=== PATIENT | female | born 1945 | race Caucasian/White ===

== ENCOUNTER → 2016-11-03 | Outpatient (REF) | payer MEDICARE, OTHER ==
[~2016-11-03] MED LIST: /OCUVTA PO; /ONDA4TA PO; ACET65TA OR; ACETAMINOPHEN PO; ACIPHEX OR; ACIPHEX PO; AMOX875T19 PO; CALTRATE PO; CIPR500T89 PO; FISHCAP PO; FLAG500T PO; FLEEENE4 PR; Fish Oil PO; GLUCOPHAGE PO; GLUCTAB2 OR; LIPI20TA OR; LIPITOR PO; LISI10TA4 OR; LISIPOW PO; Lipitor PO; MULTCAP PO; PAXI20TA OR; PAXI20TA3 PO; PAXIL PO; PROBCAP13 PO; REGL10TA6 PO; VITA500046 PO; ZYRT10TA2 PO; Zoloft; Zoloft PO
[2016-11-03 13:23] LABS: MEAN CORPUSCULAR HEMOGLOBIN 27.6 pg (27.0-33.0); MEAN CORPUSCULAR HGB CONC 31.7 g/dl (32.0-36.5); MEAN CORPUSCULAR VOLUME 87.1 fl (80.0-96.0); RED CELL DISTRIBUTION WIDTH 14.1 % (11.5-14.5); WHITE BLOOD COUNT 4.1 K/mm3 (4.0-10.0)
[2016-11-03 13:31] LABS: ALBUMIN 3.8 GM/DL (3.2-5.2); ALBUMIN/GLOBULIN RATIO 1.23 (1.00-1.93); BILIRUBIN,TOTAL 0.5 MG/DL (0.2-1.0); CALCIUM LEVEL 9.1 MG/DL (8.8-10.2); CREATININE FOR GFR 1.23 MG/DL (0.55-1.02); POTASSIUM SERUM 4.3 MEQ/L (3.5-5.1); TOTAL PROTEIN 6.9 GM/DL (6.4-8.2)
[2016-11-03 13:54] LABS: MICROSCOPIC INDICATED? MAN YES (NO)
[2016-11-03 13:55] LABS: BACTERIA, URINE SMALL AMOUNT; HYALINE CAST, URINE NONE SEEN /lpf (0-1); MICROSCOPIC EXAM PERFORMED; RBC, URINE NONE SEEN /hpf (0-3); SQUAMOUS EPITHELIAL CELL URINE SMALL AMOUNT /hpf (SMALL AMT)
== END | disposition home or self-care (01) ==
LOC: M SFHCPLAZ 10:51
PROVIDERS: ATTEND Internal Medicine
DX: D64.9 Anemia, unspecified (principal); E11.29 Type 2 diabetes mellitus with other diabetic kidney complication; E78.5 Hyperlipidemia, unspecified

== ENCOUNTER → 2016-11-05 | Outpatient (REF) | payer MEDICARE, OTHER ==
[2016-11-05 13:49] LABS: FOLATE 7.2 NG/ML
== END ==
LOC: M SFHCPLAZ 11:12
PROVIDERS: ATTEND Internal Medicine
DX: R53.82 Chronic fatigue, unspecified (principal)
CPT/HCPCS: 36415; 82607; 82746; 84439; 84443; G0463

== ENCOUNTER → 2017-05-03 | Outpatient (CLI) | payer MEDICARE, OTHER ==
[~2017-05-03] MED LIST changes: +ATOR1TAB21; +CLIN1PAD2; +LISI10TA4; +OMEP20CA3; +PARO20TA3
[2017-05-03 14:40] LABS: MEAN CORPUSCULAR HEMOGLOBIN 30.2 pg (27.0-33.0); MEAN CORPUSCULAR HGB CONC 33.7 g/dl (32.0-36.5); MEAN CORPUSCULAR VOLUME 89.7 fl (80.0-96.0); RED CELL DISTRIBUTION WIDTH 14.4 % (11.5-14.5); WHITE BLOOD COUNT 5.2 K/mm3 (4.0-10.0)
[2017-05-03 14:52] LABS: ALBUMIN 4.1 GM/DL (3.2-5.2); ALBUMIN/GLOBULIN RATIO 1.17 (1.00-1.93); BILIRUBIN,TOTAL 0.6 MG/DL (0.2-1.0); CALCIUM LEVEL 9.4 MG/DL (8.8-10.2); CREATININE FOR GFR 1.21 MG/DL (0.55-1.02); GLOMERULAR FILTRATION RATE 46.8 (>39); POTASSIUM SERUM 4.4 MEQ/L (3.5-5.1); TOTAL PROTEIN 7.6 GM/DL (6.4-8.2)
== END ==
LOC: M WUC 11:16
PROVIDERS: ATTEND Internal Medicine
DX: D64.9 Anemia, unspecified (principal); E11.29 Type 2 diabetes mellitus with other diabetic kidney complication; K21.9 Gastro-esophageal reflux disease without esophagitis

== ENCOUNTER 2017-05-17 15:37 | Emergency (ER) | payer MEDICARE, BC, OTHER ==
[~2017-05-17] VITALS: Ht 167.6 cm; Wt 84.1 kg
[~2017-05-17 15:37] MED LIST changes: -ATOR1TAB21; -CLIN1PAD2; -LISI10TA4; -OMEP20CA3; -PARO20TA3
[2017-05-17] MEDS ORDERED: ATOR1TAB21 (15:57)
[2017-05-17] MEDS ORDERED: OMEP20CA3 (15:57)
[2017-05-17] MEDS ORDERED: PARO20TA3 (15:57)
[2017-05-17] MEDS ORDERED: LISI10TA4 (15:57)
[2017-05-17] MEDS ORDERED: CLIN1PAD2 (15:57)
[2017-05-17] MEDS ORDERED: RABIES IMMUNE GLOBULIN 300 INTERNATIONAL UNITS/2 ML VIAL (90375) IM ONE (16:45)
[2017-05-17] MEDS ORDERED: RABIES VACCINE HUMAN 2.5 INTERNATIONAL UNITS/ML VIAL (90675) IM ONE (16:45)
[2017-05-17] MEDS ORDERED: RABIES IMMUNE GLOBULIN 1500 INTERNATIONAL UNITS/10 ML VIAL (90375) IM ONE ×2 (16:45)
[2017-05-17 18:08] VITALS: BP 144/82
== END 2017-05-17 18:09 | disposition home or self-care (01) ==
LOC: M ED 15:37
DX: Z20.3 Contact with and (suspected) exposure to rabies (principal); E11.9 Type 2 diabetes mellitus without complications; I10 Essential (primary) hypertension; Z87.891 Personal history of nicotine dependence

== ENCOUNTER 2017-05-24 11:29 | Emergency (ER) | payer MEDICARE, BC, OTHER ==
[~2017-05-24] VITALS: Ht 165.1 cm; Wt 84.9 kg
[~2017-05-24 11:29] MED LIST changes: +ATOR1TAB21; +CLIN1PAD2; +LISI10TA4; +OMEP20CA3; +PARO20TA3
[2017-05-24] MEDS ORDERED: RABIES VACCINE HUMAN 2.5 INTERNATIONAL UNITS/ML VIAL (90675) IM ONE (13:30)
[2017-05-24 14:11] VITALS: BP 151/98
== END 2017-05-24 14:13 | disposition home or self-care (01) ==
LOC: M ED 11:29
DX: Z20.3 Contact with and (suspected) exposure to rabies (principal)

== ENCOUNTER 2017-05-31 14:41 | Emergency (ER) | payer MEDICARE, BC, OTHER ==
[~2017-05-31] VITALS: Ht 167.6 cm; Wt 84.1 kg
[2017-05-31] MEDS ORDERED: RABIES VACCINE HUMAN 2.5 INTERNATIONAL UNITS/ML VIAL (90675) IM ONE (17:00)
[2017-05-31 17:16] VITALS: BP 165/82
== END 2017-05-31 17:17 | disposition home or self-care (01) ==
LOC: M ED 14:41
DX: Z23 Encounter for immunization (principal); Z20.3 Contact with and (suspected) exposure to rabies; I10 Essential (primary) hypertension; Z79.899 Other long term (current) drug therapy; Z88.5 Allergy status to narcotic agent; Z88.8 Allergy status to other drugs, medicaments and biological substances; Z91.013 Allergy to seafood

== ENCOUNTER → 2017-06-09 | Outpatient (REF) | payer MEDICARE, OTHER | LOC: M SFHCPLAZ 13:16 | PROVIDERS: ATTEND Internal Medicine | DX: Z20.3 Contact with and (suspected) exposure to rabies (principal) ==

== ENCOUNTER → 2018-01-05 | Outpatient (CLI) | payer MEDICARE, BC, OTHER | LOC: M RAD 07:03 | DX: K82.8 Other specified diseases of gallbladder (principal) | CPT/HCPCS: 76705 ==

== ENCOUNTER → 2018-04-14 | Outpatient (REF) | payer MEDICARE, OTHER ==
[2018-04-14 12:41] LABS: HEMATOCRIT 36.5 % (36.0-47.0); HEMOGLOBIN 11.7 g/dl (12.0-15.5); MEAN CORPUSCULAR HEMOGLOBIN 28.5 pg (27.0-33.0); MEAN CORPUSCULAR HGB CONC 32.1 g/dl (32.0-36.5); MEAN CORPUSCULAR VOLUME 88.8 fl (80.0-96.0); PLATELET COUNT, AUTOMATED 195 10^3/uL (150-450); RED BLOOD COUNT 4.11 10^6/uL (4.00-5.40); RED CELL DISTRIBUTION WIDTH 15.1 % (11.5-14.5); WHITE BLOOD COUNT 5.5 10^3/uL (4.0-10.0)
[2018-04-14 12:54] LABS: ALBUMIN 3.7 GM/DL (3.2-5.2); ALBUMIN/GLOBULIN RATIO 1.16 (1.00-1.93); ALKALINE PHOSPHATASE 60 U/L (45-117); ALT/SGPT 22 U/L (12-78); ANION GAP 9 MEQ/L (8-16); AST/SGOT 14 U/L (7-37); BILIRUBIN,TOTAL 0.5 MG/DL (0.2-1.0); BLOOD UREA NITROGEN 20 MG/DL (7-18); CALCIUM LEVEL 8.8 MG/DL (8.8-10.2); CARBON DIOXIDE LEVEL 27 MEQ/L (21-32); CHLORIDE LEVEL 109 MEQ/L (98-107); CHOLESTEROL LEVEL 176 MG/DL (<200); CHOLESTEROL RISK RATIO 2.285 (<5); CREATININE FOR GFR 1.18 MG/DL (0.55-1.30); GLOMERULAR FILTRATION RATE 48.1 (>39); GLUCOSE, FASTING 121 MG/DL (70-100); HDL CHOLESTEROL 77 MG/DL (>40); LDL CHOLESTEROL 53.4 MG/DL (<100); MAGNESIUM LEVEL 1.9 MG/DL (1.8-2.4); NON-HDL-C 99 MG/DL; POTASSIUM SERUM 4.5 MEQ/L (3.5-5.1); SODIUM LEVEL 145 MEQ/L (136-145); TOTAL PROTEIN 6.9 GM/DL (6.4-8.2); TRIGLYCERIDES LEVEL 228 MG/DL (<150)
[2018-04-14 13:18] LABS: ESTIMATED AVERAGE GLUCOSE 137 MG/DL (60-110); HEMOGLOBIN A1c 6.4 %
[2018-04-14 13:55] LABS: MAU/CREAT RATIO 160.5 MCG/MG (0.0-30.0)
== END ==
LOC: M SFHCPLAZ 08:58
DX: E11.29 Type 2 diabetes mellitus with other diabetic kidney complication (principal); D64.9 Anemia, unspecified; E78.5 Hyperlipidemia, unspecified; E28.2 Polycystic ovarian syndrome
CPT/HCPCS: 83735

== ENCOUNTER → 2018-04-21 | Outpatient (REF) | payer MEDICARE, OTHER ==
[2018-04-21 19:02] LABS: URIC ACID 7.8 MG/DL (2.6-6.0)
== END ==
LOC: M SFHCPLAZ 15:56
DX: M79.675 Pain in left toe(s) (principal)
CPT/HCPCS: 84550

== ENCOUNTER → 2018-06-20 | Outpatient (REF) | payer MEDICARE, OTHER | LOC: M SFHCWAGY 10:01 | DX: Z12.4 Encounter for screening for malignant neoplasm of cervix (principal); N95.2 Postmenopausal atrophic vaginitis; Z12.12 Encounter for screening for malignant neoplasm of rectum | CPT/HCPCS: G0123 ==

== ENCOUNTER → 2019-02-01 | Outpatient (REF) | payer MEDICARE, OTHER ==
[~2019-02-01] MED LIST changes: -/OCUVTA PO; -/ONDA4TA PO; +ONDA-1 PO; +PROS2TAB2 PO; +ZYRT10CA5 PO; -ZYRT10TA2 PO
[2019-02-01 12:56] LABS: HEMATOCRIT 36.8 % (36.0-47.0); HEMOGLOBIN 11.7 g/dl (12.0-15.5); MEAN CORPUSCULAR HEMOGLOBIN 30.6 pg (27.0-33.0); MEAN CORPUSCULAR HGB CONC 31.8 g/dl (32.0-36.5); MEAN CORPUSCULAR VOLUME 96.3 fl (80.0-96.0); PLATELET COUNT, AUTOMATED 221 10^3/uL (150-450); RED BLOOD COUNT 3.82 10^6/uL (4.00-5.40)
[2019-02-01 12:57] LABS: ALBUMIN 3.6 GM/DL (3.2-5.2); BILIRUBIN,TOTAL 0.5 MG/DL (0.2-1.0); CALCIUM LEVEL 9.2 MG/DL (8.8-10.2); CHOLESTEROL RISK RATIO 1.886 (<5); CREATININE FOR GFR 1.28 MG/DL (0.55-1.30); GLOMERULAR FILTRATION RATE 43.6 (>39); POTASSIUM SERUM 4.6 MEQ/L (3.5-5.1)
[2019-02-01 13:14] LABS: HEMOGLOBIN A1c 5.9 %
[2019-02-01 13:20] LABS: MALB URINE SIEMENS 96.1 MG/L; MAU/CREAT RATIO 51.1 MCG/MG (0.0-30.0)
== END ==
LOC: M SFHCPLAZ 08:38
PROVIDERS: ATTEND Internal Medicine
DX: D64.9 Anemia, unspecified (principal); E11.29 Type 2 diabetes mellitus with other diabetic kidney complication; E78.5 Hyperlipidemia, unspecified; M79.675 Pain in left toe(s); E55.9 Vitamin D deficiency, unspecified

== ENCOUNTER → 2019-08-08 | Outpatient (REF) | payer MEDICARE, OTHER ==
[~2019-08-08] MED LIST changes: -OMEP20CA3; +OMEP20CA4
[2019-08-08 10:45] LABS: HEMOGLOBIN 11.3 g/dl (12.0-15.5); MEAN CORPUSCULAR HEMOGLOBIN 28.7 pg (27.0-33.0); MEAN CORPUSCULAR HGB CONC 31.4 g/dl (32.0-36.5); MEAN CORPUSCULAR VOLUME 91.4 fl (80.0-96.0); PLATELET COUNT, AUTOMATED 233 10^3/uL (150-450); RED BLOOD COUNT 3.94 10^6/uL (4.00-5.40); WHITE BLOOD COUNT 4.5 10^3/uL (4.0-10.0)
[2019-08-08 11:09] LABS: HEMOGLOBIN A1c 6.1 %
[2019-08-08 11:18] LABS: ALBUMIN 3.6 GM/DL (3.2-5.2); BILIRUBIN,TOTAL 0.4 MG/DL (0.2-1.0); CALCIUM LEVEL 9.3 MG/DL (8.8-10.2); CREATININE FOR GFR 1.27 MG/DL (0.55-1.30); POTASSIUM SERUM 4.5 MEQ/L (3.5-5.1); THYROID STIMULATING HORMONE 1.92 uIU/ML (0.358-3.740)
[2019-08-08 11:22] LABS: MAU/CREAT RATIO 75.8 MCG/MG (0.0-30.0)
== END ==
LOC: M SFHCPLAZ 08:05
PROVIDERS: ATTEND Internal Medicine
DX: D64.9 Anemia, unspecified (principal); E11.29 Type 2 diabetes mellitus with other diabetic kidney complication; R53.82 Chronic fatigue, unspecified

== ENCOUNTER → 2020-02-22 | Outpatient (CLI) | payer MEDICARE, OTHER ==
[~2020-02-22] MED LIST changes: +OMEP1CAP73; -OMEP20CA4
[2020-02-22 11:19] LABS: HEMATOCRIT 36.1 % (36.0-47.0); HEMOGLOBIN 11.5 g/dl (12.0-15.5); MEAN CORPUSCULAR HEMOGLOBIN 29.6 pg (27.0-33.0); MEAN CORPUSCULAR HGB CONC 31.9 g/dl (32.0-36.5); MEAN CORPUSCULAR VOLUME 92.8 fl (80.0-96.0); PLATELET COUNT, AUTOMATED 215 10^3/uL (150-450); RED BLOOD COUNT 3.89 10^6/uL (4.00-5.40); WHITE BLOOD COUNT 4.2 10^3/uL (4.0-10.0)
[2020-02-22 11:58] LABS: HEMOGLOBIN A1c 6.4 %
[2020-02-22 12:16] LABS: ALBUMIN 3.8 GM/DL (3.2-5.2); BILIRUBIN,TOTAL 0.5 MG/DL (0.2-1.0); CHOLESTEROL RISK RATIO 2.105 (<5); CREATININE FOR GFR 1.27 MG/DL (0.55-1.30); GLOMERULAR FILTRATION RATE 43.9 (>39); POTASSIUM SERUM 4.8 MEQ/L (3.5-5.1); TOTAL PROTEIN 6.9 GM/DL (6.4-8.2)
[2020-02-22 12:28] LABS: MAU/CREAT RATIO 50.5 MCG/MG (0.0-30.0)
== END ==
LOC: M PLALAB 09:19
PROVIDERS: ATTEND Internal Medicine
DX: E11.29 Type 2 diabetes mellitus with other diabetic kidney complication (principal); E78.5 Hyperlipidemia, unspecified; D64.9 Anemia, unspecified

== ENCOUNTER → 2021-02-03 | Outpatient (REF) | payer MEDICARE, OTHER ==
[~2021-02-03] MED LIST changes: +LISI10TA22; -LISI10TA4
[2021-02-03 11:02] LABS: HEMOGLOBIN 11.6 g/dl (12.0-15.5); MEAN CORPUSCULAR HEMOGLOBIN 29.9 pg (27.0-33.0); MEAN CORPUSCULAR HGB CONC 31.4 g/dl (32.0-36.5); MEAN CORPUSCULAR VOLUME 95.4 fl (80.0-96.0); PLATELET COUNT, AUTOMATED 227 10^3/uL (150-450); RED BLOOD COUNT 3.88 10^6/uL (4.00-5.40); WHITE BLOOD COUNT 4.6 10^3/uL (4.0-10.0)
[2021-02-03 11:19] LABS: HEMOGLOBIN A1c 6.1 %
[2021-02-03 11:41] LABS: ALBUMIN 3.8 GM/DL (3.2-5.2); BILIRUBIN,TOTAL 0.4 MG/DL (0.2-1.0); CALCIUM LEVEL 9.1 MG/DL (8.8-10.2); CREATININE FOR GFR 1.3 MG/DL (0.55-1.30); GLOMERULAR FILTRATION RATE 42.6 (>39); POTASSIUM SERUM 4.6 MEQ/L (3.5-5.1); THYROID STIMULATING HORMONE 1.04 uIU/ML (0.358-3.740); TOTAL PROTEIN 6.9 GM/DL (6.4-8.2); URIC ACID 8.3 MG/DL (2.6-6.0)
== END ==
LOC: M PLALAB 08:11
PROVIDERS: ATTEND Internal Medicine
DX: D64.9 Anemia, unspecified (principal); E11.29 Type 2 diabetes mellitus with other diabetic kidney complication; R53.82 Chronic fatigue, unspecified; M1A.0790 Idiopathic chronic gout, unspecified ankle and foot, without tophus (tophi)
CPT/HCPCS: 36415; 80053; 83036; 84443; 84550; 85027; 90471; 90715; 93005; G0463

== ENCOUNTER → 2021-07-24 | Outpatient (CLI) | payer MEDICARE, BC, OTHER ==
[2021-07-24 10:17] LABS: BASO # 0.1 10^3/uL (0.0-0.2); BASO % 0.9 % (0.0-1.0); EOS # 0.2 10^3/uL (0.0-0.5); EOS % 4.1 % (0.0-3.0); HEMATOCRIT 35.1 % (36.0-47.0); HEMOGLOBIN 11.2 g/dl (12.0-15.5); LYMPH # 1.8 10^3/uL (1.5-5.0); LYMPH % 33.5 % (24.0-44.0); MEAN CORPUSCULAR HEMOGLOBIN 30.4 pg (27.0-33.0); MEAN CORPUSCULAR HGB CONC 31.9 g/dl (32.0-36.5); MEAN CORPUSCULAR VOLUME 95.1 fl (80.0-96.0); MONO # 0.4 10^3/uL (0.0-0.8); MONO % 7.2 % (2.0-8.0); NEUTROPHILS # 2.9 10^3/uL (1.5-8.5); NEUTROPHILS % 54.1 % (36.0-66.0); PLATELET COUNT, AUTOMATED 244 10^3/uL (150-450); RED BLOOD COUNT 3.69 10^6/uL (4.00-5.40); WHITE BLOOD COUNT 5.4 10^3/uL (4.0-10.0)
[2021-07-24 11:04] LABS: ALBUMIN 3.7 GM/DL (3.2-5.2); BILIRUBIN,TOTAL 0.6 MG/DL (0.2-1.0); CALCIUM LEVEL 9.6 MG/DL (8.8-10.2); CHOLESTEROL RISK RATIO 1.747 (<5); CREATININE FOR GFR 1.3 MG/DL (0.55-1.30); FOLATE 9.2 NG/ML; GLOMERULAR FILTRATION RATE 42.6 (>39); PERCENT SATURATION 19.7 % (13.2-45.0); URIC ACID 4.6 MG/DL (2.6-6.0)
[2021-07-24 15:04] LABS: MAU/CREAT RATIO 109.7 MCG/MG (0.0-30.0)
== END ==
LOC: M PLALAB 09:05
PROVIDERS: ATTEND Internal Medicine
DX: Z00.00 Encounter for general adult medical examination without abnormal findings (principal); E11.29 Type 2 diabetes mellitus with other diabetic kidney complication; E78.5 Hyperlipidemia, unspecified; D64.9 Anemia, unspecified

== ENCOUNTER → 2021-07-28 | Outpatient (CLI) | payer MEDICARE, BC, OTHER ==
--- NOTE | 2021-08-01 09:27 | HOLTMON ---
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 Referring Physician: Peterson Gillis 48 hr holter PREDOM SINUS MECHANISM MAX HR 128 AVG 71 MIN 48 SUNUS ARRYTHMIA NOTED ALSO SUMMARY PG NOTES 422 PACS WITH SOME IN PRS AND SHORT RUNS, SELECTED STRIPS SHOW ONLY SINGLETS. SOME PACS MAY HAVE BEEN COUNTED PVC SEE PG 24 226 PVCS,SINGLETS WITH 3 DIFFERENT MORPHOLOGIES AVG QTC 433 MAX QTC 472 2 OF TEMPLATE BEATS WITH STTABN WIRN ST DEPRESSION ( TOTAL ABOUT 200 BEATS (LESS THAN 1 Per cent Electronically Signed on 08-01-2021 9:26:35 EST by Blanquita Barrett
== END ==
LOC: M EKG 10:28
PROVIDERS: ATTEND Internal Medicine
DX: R00.2 Palpitations (principal)

== ENCOUNTER → 2021-08-07 | Outpatient (CLI) | payer MEDICARE, BC, OTHER ==
--- NOTE | 2021-08-08 17:09 | ECHO ---
ECHOCARDIOGRAM DATE OF PROCEDURE: 08/07/2021 Age: 75 Gender: Female Height: 155 cm Weight: 86 kg REFERRING PHYSICIAN: Dr. Peterson Gillis INDICATION: Palpitations. 2D MEASUREMENTS: Ventricular septum 1.00 cm Posterior wall 1.07 cm Left ventricle diastole 4.8 cm Left ventricle systole 3.2 cm Aortic root 3.1 cm Left atrium 4.4 cm Left atrial volume index 36 Proximal ascending aorta 3.2 cm DOPPLER MEASUREMENTS: No aortic stenosis or regurgitation. Aortic valve velocity 147 cm/s LVOT velocity 94.7 cm/s Very mild mitral regurgitation. Mitral E velocity 63.1 cm/s Mitral A velocity 116 cm/s Mitral deceleration time 366 msec Trace tricuspid regurgitation Mild pulmonic regurgitation Pulmonary artery systolic pressure 16 mmHg by pulmonary exhalation method MITRAL ANNULAR TISSUE DOPPLER: E prime septal 2.7 cm/s E prime lateral 2.8 cm/s DESCRIPTION: Rhythm was sinus. Image quality was fair. No pericardial effusion. This was a 2D, M-mode, color flow Doppler, and pulse wave Doppler examination and including mitral annular tissue Doppler. CONCLUSIONS: 1. Normal left ventricle internal dimensions and wall thickness. Normal regional LV wall motion and wall thickening. Normal LV systolic function. LVEF 65% by visual estimate. Grade 1 LV diastolic dysfunction. 2. Moderate left atrial dilatation by left atrial volume index. 3. Mild mitral annular calcification. Very mild mitral regurgitation. 4. Mild aortic valve sclerosis of a 3-cuspid aortic valve. No aortic regurgitation. 5. Otherwise normal-appearing echocardiogram Doppler findings.
== END ==
LOC: M CARPUL 07:40
PROVIDERS: ATTEND Internal Medicine
DX: R00.2 Palpitations (principal); I35.0 Nonrheumatic aortic (valve) stenosis; I08.0 Rheumatic disorders of both mitral and aortic valves

== ENCOUNTER → 2022-01-26 | Outpatient (CLI) | payer MEDICARE, BC, OTHER ==
[2022-01-26 10:13] LABS: BASO # 0.1 10^3/uL (0.0-0.2); EOS # 0.3 10^3/uL (0.0-0.5); EOS % 4.4 % (0.0-3.0); HEMATOCRIT 35.6 % (36.0-47.0); HEMOGLOBIN 11.1 g/dl (12.0-15.5); LYMPH # 2.1 10^3/uL (1.5-5.0); LYMPH % 34.8 % (24.0-44.0); MEAN CORPUSCULAR HGB CONC 31.2 g/dl (32.0-36.5); MEAN CORPUSCULAR VOLUME 96.2 fl (80.0-96.0); MONO # 0.4 10^3/uL (0.0-0.8); MONO % 6.7 % (2.0-8.0); NEUTROPHILS # 3.2 10^3/uL (1.5-8.5); NEUTROPHILS % 52.8 % (36.0-66.0); PLATELET COUNT, AUTOMATED 242 10^3/uL (150-450); WHITE BLOOD COUNT 6.1 10^3/uL (4.0-10.0)
[2022-01-26 10:26] LABS: ALBUMIN 3.6 GM/DL (3.2-5.2); BILIRUBIN,TOTAL 0.3 MG/DL (0.2-1.0); CALCIUM LEVEL 9.6 MG/DL (8.8-10.2); CHOLESTEROL RISK RATIO 1.915 (<5); CREATININE FOR GFR 1.24 MG/DL (0.55-1.30); GLOMERULAR FILTRATION RATE 44.9 (>39); POTASSIUM SERUM 5.1 MEQ/L (3.5-5.1); THYROID STIMULATING HORMONE 1.43 uIU/ML (0.358-3.740)
[2022-01-26 10:48] LABS: MAU/CREAT RATIO 64.6 MCG/MG (0.0-30.0)
== END ==
LOC: M PLALAB 07:58
PROVIDERS: ATTEND Internal Medicine
DX: I10 Essential (primary) hypertension (principal); E11.29 Type 2 diabetes mellitus with other diabetic kidney complication; E78.5 Hyperlipidemia, unspecified; R53.82 Chronic fatigue, unspecified

== ENCOUNTER → 2022-07-07 | Outpatient (CLI) | payer MEDICARE, BC, OTHER ==
[2022-07-07 16:20] LABS: HEMATOCRIT 36.2 % (36.0-47.0); HEMOGLOBIN 11.8 g/dl (12.0-15.5); MEAN CORPUSCULAR HEMOGLOBIN 31.3 pg (27.0-33.0); MEAN CORPUSCULAR HGB CONC 32.6 g/dl (32.0-36.5); PLATELET COUNT, AUTOMATED 210 10^3/uL (150-450); RED BLOOD COUNT 3.77 10^6/uL (4.00-5.40); WHITE BLOOD COUNT 5.5 10^3/uL (4.0-10.0)
[2022-07-07 16:55] LABS: HEMOGLOBIN A1c 5.5 %
[2022-07-07 17:03] LABS: ALBUMIN 3.7 GM/DL (3.2-5.2); BILIRUBIN,TOTAL 0.5 MG/DL (0.2-1.0); C REACTIVE PROTEIN QUANTITATIV 0.3 MG/DL (0.00-0.30); CALCIUM LEVEL 9.5 MG/DL (8.8-10.2); CREATININE FOR GFR 1.38 MG/DL (0.55-1.30); FREE T4 0.98 NG/DL (0.76-1.46); GLOMERULAR FILTRATION RATE 39.7 (>39); PERCENT SATURATION 27.4 % (13.2-45.0); POTASSIUM SERUM 4.3 MEQ/L (3.5-5.1); THYROID STIMULATING HORMONE 1.36 uIU/ML (0.358-3.740)
[2022-07-07 17:08] LABS: MAU/CREAT RATIO 65.5 MCG/MG (0.0-30.0)
[2022-07-07 17:19] LABS: TOTAL 25(OH) VITAMIN D 40.2 NG/ML (30.0-100.0)
== END ==
LOC: M PLALAB 12:00
PROVIDERS: ATTEND Internal Medicine Hematology
DX: E11.29 Type 2 diabetes mellitus with other diabetic kidney complication (principal); K21.9 Gastro-esophageal reflux disease without esophagitis; Z79.899 Other long term (current) drug therapy

== ENCOUNTER → 2023-07-27 | Outpatient (CLI) | payer MEDICARE, BC, OTHER ==
[2023-07-27 11:54] LABS: HEMATOCRIT 36.6 % (36.0-47.0); HEMOGLOBIN 11.8 g/dl (12.0-15.5); MEAN CORPUSCULAR HEMOGLOBIN 31.2 pg (27.0-33.0); MEAN CORPUSCULAR HGB CONC 32.2 g/dl (32.0-36.5); MEAN CORPUSCULAR VOLUME 96.8 fl (80.0-96.0); PLATELET COUNT, AUTOMATED 216 10^3/uL (150-450); RED BLOOD COUNT 3.78 10^6/uL (4.00-5.40); WHITE BLOOD COUNT 4.7 10^3/uL (4.0-10.0)
[2023-07-27 12:14] LABS: CREATININE, URINE 166.2 MG/DL; MAU/CREAT RATIO 54.7 MCG/MG (0.0-30.0)
[2023-07-27 12:16] LABS: HEMOGLOBIN A1c 5.6 % (4.0-6.0)
[2023-07-27 12:26] LABS: C REACTIVE PROTEIN QUANTITATIV < 0.40 MG/DL (<1.0)
[2023-07-27 12:30] LABS: ALBUMIN 3.8 G/DL (3.2-5.2); ALKALINE PHOSPHATASE 56 U/L (46-116); ALT/SGPT 10 U/L (7.0-40); AST/SGOT 14 U/L (<34); BILIRUBIN,TOTAL 0.6 MG/DL (0.3-1.2); BLOOD UREA NITROGEN 31 MG/DL (9-23); CALCIUM LEVEL 9.6 MG/DL (8.3-10.6); CARBON DIOXIDE LEVEL 27 MMOL/L (20-31); CHLORIDE LEVEL 107 MMOL/L (98-107); CHOLESTEROL LEVEL 154 MG/DL (<200); CHOLESTEROL RISK RATIO 1.92 (<5); CREATININE FOR GFR 1.28 MG/DL (0.55-1.30); FREE T4 1.12 NG/DL (0.89-1.76); GLOMERULAR FILTRATION RATE 43.2 (>39); GLUCOSE, FASTING 89 MG/DL (74-106); LDL CHOLESTEROL 54.8 MG/DL (<100); POTASSIUM SERUM 4.6 MMOL/L (3.5-5.1); SODIUM LEVEL 140 MMOL/L (136-145); THYROID STIMULATING HORMONE 1.906 uIU/ML (0.55-4.78); TOTAL 25(OH) VITAMIN D 54.7 NG/ML (20.0-100.0); TOTAL PROTEIN 6.8 G/DL (5.7-8.2); TRIGLYCERIDES LEVEL 96 MG/DL (<150); VITAMIN B12 LEVEL 446 PG/ML (211-911)
== END ==
LOC: M LAB 11:10
PROVIDERS: ATTEND Internal Medicine Hematology
DX: E11.29 Type 2 diabetes mellitus with other diabetic kidney complication (principal)

== ENCOUNTER → 2024-01-31 | Outpatient (CLI) | payer MEDICARE, BC, OTHER ==
[2024-01-31 18:06] LABS: HEMATOCRIT 36.5 % (36.0-47.0); HEMOGLOBIN 11.9 g/dl (12.0-15.5); MEAN CORPUSCULAR HEMOGLOBIN 31.7 pg (27.0-33.0); MEAN CORPUSCULAR HGB CONC 32.6 g/dl (32.0-36.5); MEAN CORPUSCULAR VOLUME 97.3 fl (80.0-96.0); PLATELET COUNT, AUTOMATED 232 10^3/uL (150-450); RED BLOOD COUNT 3.75 10^6/uL (4.00-5.40); WHITE BLOOD COUNT 6.7 10^3/uL (4.0-10.0)
[2024-01-31 18:13] LABS: HEMOGLOBIN A1c 5.4 % (4.0-6.0)
[2024-01-31 18:19] LABS: CREATININE, URINE 221.9 MG/DL; MAU/CREAT RATIO 57.2 MCG/MG (0.0-30.0)
[2024-01-31 18:31] LABS: C REACTIVE PROTEIN QUANTITATIV < 0.40 MG/DL (<1.0)
[2024-01-31 18:34] LABS: TOTAL 25(OH) VITAMIN D 47.7 NG/ML (20.0-100.0); VITAMIN B12 LEVEL 617 PG/ML (211-911)
[2024-01-31 18:35] LABS: ALBUMIN 3.7 G/DL (3.2-5.2); ALKALINE PHOSPHATASE 55 U/L (46-116); ALT/SGPT 17 U/L (7.0-40); AST/SGOT 15 U/L (<34); BILIRUBIN,TOTAL 0.6 MG/DL (0.3-1.2); BLOOD UREA NITROGEN 30 MG/DL (9-23); CALCIUM LEVEL 9.5 MG/DL (8.3-10.6); CARBON DIOXIDE LEVEL 23 MMOL/L (20-31); CHLORIDE LEVEL 108 MMOL/L (98-107); CHOLESTEROL LEVEL 168 MG/DL (<200); CHOLESTEROL RISK RATIO 2.41 (<5); CREATININE FOR GFR 1.35 MG/DL (0.55-1.30); GLOMERULAR FILTRATION RATE 40.5 (>39); GLUCOSE, FASTING 99 MG/DL (74-106); HDL CHOLESTEROL 69.6 MG/DL (>40); LDL CHOLESTEROL 57.8 MG/DL (<100); NON-HDL-C 98.4 MG/DL; POTASSIUM SERUM 4.4 MMOL/L (3.5-5.1); SODIUM LEVEL 143 MMOL/L (136-145); TOTAL PROTEIN 6.8 G/DL (5.7-8.2); TRIGLYCERIDES LEVEL 203 MG/DL (<150)
== END ==
LOC: M PLALAB 16:53
PROVIDERS: ATTEND Internal Medicine Hematology
DX: E78.5 Hyperlipidemia, unspecified (principal)

== ENCOUNTER 2024-04-19 07:55 | Day surgery (SDC) | payer MEDICARE, BC ==
[~2024-04-19] VITALS: Ht 166.4 cm; Wt 76.6 kg
[2024-04-19] MEDS: NS 1,000 ML IV ONE (08:13)
[2024-04-19] MEDS ORDERED: LIDOCAINE 2% 100MG/5ML SDV (FOR ANES.) As Ordered ONE (08:51)
[2024-04-19] MEDS ORDERED: fentaNYL 100 MCG/2 ML INJECTION As Ordered ONE (08:52)
[2024-04-19] MEDS ORDERED: propofoL 500 MG/50 ML VIAL As Ordered ONE (08:52)
[2024-04-19 09:33] VITALS: TEMP 97.5
[2024-04-19 09:55] VITALS: BP 152/82; O2SAT 99
== END 2024-04-19 10:07 | disposition home or self-care (01) ==
LOC: M OPP 07:55
PROVIDERS: ATTEND Surgery
DX: Z12.11 Encounter for screening for malignant neoplasm of colon (principal); D12.0 Benign neoplasm of cecum; K57.30 Diverticulosis of large intestine without perforation or abscess without bleeding; K44.9 Diaphragmatic hernia without obstruction or gangrene; K31.89 Other diseases of stomach and duodenum; C7A.092 Malignant carcinoid tumor of the stomach; K30 Functional dyspepsia; R13.10 Dysphagia, unspecified; Z87.891 Personal history of nicotine dependence; E11.9 Type 2 diabetes mellitus without complications; Z79.82 Long term (current) use of aspirin; Z79.85 Long-term (current) use of injectable non-insulin antidiabetic drugs; Z79.899 Other long term (current) drug therapy; Z88.1 Allergy status to other antibiotic agents; Z88.5 Allergy status to narcotic agent; Z91.013 Allergy to seafood
CPT/HCPCS: 43239; 45380; 45385; 88305; J3010

== ENCOUNTER → 2024-07-04 | Outpatient (CLI) | payer MEDICARE, BC ==
[~2024-07-04] MED LIST changes: +E-Z-GAS II EFFERVESCENT PACKET (SODIUM BICARB./CITRIC ACID/SIMETHICONE) As Ordered ONE; +E-Z-HD 98% w/w 340GM SUSP BTL As Ordered ONE; +E-Z-PAQUE 96% w/w SUSP 176GM BTL As Ordered ONE
== END ==
LOC: M RAD 08:57
PROVIDERS: ATTEND Physician Assistant Medical
DX: R13.10 Dysphagia, unspecified (principal); K21.9 Gastro-esophageal reflux disease without esophagitis; K44.9 Diaphragmatic hernia without obstruction or gangrene

== ENCOUNTER → 2024-07-17 | Outpatient (CLI) | payer MEDICARE, OTHER ==
[~2024-07-17] MED LIST changes: -E-Z-GAS II EFFERVESCENT PACKET (SODIUM BICARB./CITRIC ACID/SIMETHICONE) As Ordered ONE; -E-Z-HD 98% w/w 340GM SUSP BTL As Ordered ONE; -E-Z-PAQUE 96% w/w SUSP 176GM BTL As Ordered ONE
[2024-07-17 13:34] LABS: BASO # 0.1 10^3/uL (0.0-0.2); BASO % 1.1 % (0.0-1.0); EOS # 0.2 10^3/uL (0.0-0.5); HEMATOCRIT 35.6 % (36.0-47.0); HEMOGLOBIN 11.5 g/dl (12.0-15.5); LYMPH # 1.7 10^3/uL (1.5-5.0); MEAN CORPUSCULAR HEMOGLOBIN 31.6 pg (27.0-33.0); MEAN CORPUSCULAR HGB CONC 32.3 g/dl (32.0-36.5); MEAN CORPUSCULAR VOLUME 97.8 fl (80.0-96.0); MONO # 0.3 10^3/uL (0.0-0.8); MONO % 5.4 % (2.0-8.0); NEUTROPHILS % 57.3 % (36.0-66.0); PLATELET COUNT, AUTOMATED 221 10^3/uL (150-450); RED BLOOD COUNT 3.64 10^6/uL (4.00-5.40); WHITE BLOOD COUNT 5.2 10^3/uL (4.0-10.0)
[2024-07-17 13:41] LABS: HEMOGLOBIN A1c 5.2 % (4.0-6.0)
[2024-07-17 13:51] LABS: C REACTIVE PROTEIN QUANTITATIV < 0.40 MG/DL (<1.0)
[2024-07-17 13:53] LABS: ALBUMIN 3.6 G/DL (3.2-5.2); ALKALINE PHOSPHATASE 53 U/L (35-104); ALT/SGPT 15 U/L (7.0-40); AST/SGOT 13 U/L (<34); BILIRUBIN,TOTAL 0.7 MG/DL (0.3-1.2); BLOOD UREA NITROGEN 24 MG/DL (9-23); CALCIUM LEVEL 9.6 MG/DL (8.3-10.6); CARBON DIOXIDE LEVEL 26 MMOL/L (20-31); CHLORIDE LEVEL 111 MMOL/L (98-107); CHOLESTEROL LEVEL 153 MG/DL (<200); CHOLESTEROL RISK RATIO 2.11 (<5); CREATININE FOR GFR 1.35 MG/DL (0.55-1.30); GLOMERULAR FILTRATION RATE 40.5 (>39); GLUCOSE, FASTING 97 MG/DL (74-106); HDL CHOLESTEROL 72.5 MG/DL (>40); LDL CHOLESTEROL 49.7 MG/DL (<100); NON-HDL-C 80.5 MG/DL; POTASSIUM SERUM 4.7 MMOL/L (3.5-5.1); SODIUM LEVEL 144 MMOL/L (136-145); TOTAL PROTEIN 6.8 G/DL (5.7-8.2); TRIGLYCERIDES LEVEL 154 MG/DL (<150)
[2024-07-17 13:57] LABS: FERRITIN 65.3 NG/ML (7.3-270.7); FREE T4 1.24 NG/DL (0.89-1.76); TOTAL 25(OH) VITAMIN D 55.1 NG/ML (20.0-100.0)
[2024-07-17 13:58] LABS: THYROID STIMULATING HORMONE 1.308 uIU/ML (0.55-4.78); VITAMIN B12 LEVEL 534 PG/ML (211-911)
[2024-07-17 14:08] LABS: CREATININE, URINE 297.4 MG/DL; MAU/CREAT RATIO 75.6 MCG/MG (0.0-30.0)
== END ==
LOC: M PLALAB 11:10
PROVIDERS: ATTEND Internal Medicine Hematology
DX: K21.9 Gastro-esophageal reflux disease without esophagitis (principal); E11.29 Type 2 diabetes mellitus with other diabetic kidney complication

== ENCOUNTER → 2025-01-29 | Outpatient (CLI) | payer MEDICARE, BC | LOC: M WHC 13:43 | PROVIDERS: ATTEND Student in an Organized Health Care Education/Training Program | DX: N63.0 Unspecified lump in unspecified breast (principal); R22.2 Localized swelling, mass and lump, trunk ==

== ENCOUNTER → 2025-03-12 | Outpatient (CLI) | payer MEDICARE, BC ==
[2025-03-12 13:24] LABS: BASO # 0.1 10^3/uL (0.0-0.2); BASO % 0.9 % (0.0-1.0); EOS # 0.2 10^3/uL (0.0-0.5); EOS % 4.1 % (0.0-3.0); HEMOGLOBIN 12.3 g/dl (12.0-15.5); LYMPH # 1.5 10^3/uL (1.5-5.0); LYMPH % 28.5 % (24.0-44.0); MEAN CORPUSCULAR HEMOGLOBIN 30.8 pg (27.0-33.0); MEAN CORPUSCULAR HGB CONC 32.4 g/dl (32.0-36.5); MEAN CORPUSCULAR VOLUME 95.2 fl (80.0-96.0); MONO # 0.4 10^3/uL (0.0-0.8); MONO % 7.4 % (2.0-8.0); NEUTROPHILS # 3.2 10^3/uL (1.5-8.5); NEUTROPHILS % 58.9 % (36.0-66.0); PLATELET COUNT, AUTOMATED 198 10^3/uL (150-450); RED BLOOD COUNT 3.99 10^6/uL (4.00-5.40); WHITE BLOOD COUNT 5.4 10^3/uL (4.0-10.0)
[2025-03-12 13:34] LABS: THYROID STIMULATING HORMONE 2.252 uIU/ML (0.55-4.78)
[2025-03-12 13:46] LABS: HEMOGLOBIN A1c 5.8 % (4.0-6.0)
[2025-03-12 14:37] LABS: FERRITIN 34.3 NG/ML (7.3-270.7); TOTAL 25(OH) VITAMIN D 40.8 NG/ML (20.0-100.0)
[2025-03-12 14:38] LABS: VITAMIN B12 LEVEL 393 PG/ML (211-911)
[2025-03-12 14:39] LABS: ALBUMIN 3.9 G/DL (3.2-5.2); ALKALINE PHOSPHATASE 45 U/L (35-104); ALT/SGPT 12 U/L (7.0-40); AST/SGOT 21 U/L (<34); BILIRUBIN,TOTAL 0.6 MG/DL (0.3-1.2); BLOOD UREA NITROGEN 30 MG/DL (9-23); C REACTIVE PROTEIN QUANTITATIV < 0.50 MG/DL (<1.0); CALCIUM LEVEL 9.4 MG/DL (8.3-10.6); CARBON DIOXIDE LEVEL 24 MMOL/L (20-31); CHLORIDE LEVEL 109 MMOL/L (98-107); CHOLESTEROL LEVEL 156 MG/DL (<200); CHOLESTEROL RISK RATIO 2.13 (<5); CREATININE FOR GFR 1.45 MG/DL (0.55-1.30); GLOMERULAR FILTRATION RATE 36.9 (>39); GLUCOSE, FASTING 113 MG/DL (74-106); HDL CHOLESTEROL 72.9 MG/DL (>40); LDL CHOLESTEROL 49.3 MG/DL (<100); NON-HDL-C 83.1 MG/DL; POTASSIUM SERUM 4.8 MMOL/L (3.5-5.1); SODIUM LEVEL 145 MMOL/L (136-145); TOTAL PROTEIN 6.8 G/DL (5.7-8.2); TRIGLYCERIDES LEVEL 169 MG/DL (<150)
== END ==
LOC: M PLALAB 09:46
PROVIDERS: ATTEND Student in an Organized Health Care Education/Training Program
DX: E11.29 Type 2 diabetes mellitus with other diabetic kidney complication (principal); K21.9 Gastro-esophageal reflux disease without esophagitis; Z79.899 Other long term (current) drug therapy